=== PATIENT | male | born 1930 | race Caucasian/White ===

== ENCOUNTER 2021-09-04 09:33 | Emergency (ER) | payer MEDICARE, OTHER ==
[2021-09-04 10:56] LABS: LACTIC ACID 0.8 mmol/L (0.4-1.9)
[2021-09-04 11:08] LABS: BASOPHIL 0.6 % (0-2); EOSINOPHIL 1.1 % (0-7); HCT 40.4 % (42.0-52.0); HGB 13.3 g/dl (13.2-18.0); LYMPHOCYTE 48.9 % (15-48); MCH 31.3 pg (25.0-31.0); MCHC 32.9 g/dL (32.0-36.0); MCV 95.1 fL (78.0-100.0); MONOCYTE 5.1 % (0-12); MPV 9.5 fL (6.0-9.5); NEUTROPHIL 43.8 % (41-80); NRBC 0; PLT 302 K/uL (150-400); RBC 4.25 M/uL (4.70-6.00); RDW 13.4 % (11.5-14.0)
[2021-09-04 11:10] LABS: WBC 27.7 K/uL (4.0-10.5)
[2021-09-04 11:27] LABS: ALBUMIN 2.7 g/dL (3.4-5.0); BILIRUBIN - TOTAL 0.5 mg/dL (0.2-1.0); POTASSIUM 4.1 mmol/L (3.5-5.1); TOTAL PROTEIN 7.7 g/dL (6.4-8.2)
[2021-09-04 11:43] LABS: INR 1.23 (0.9-1.2); PROTHROMBIN TIME 15.1 SECONDS (11.9-13.9); PTT 32.9 SECONDS (24.9-34.6)
== END 2021-09-04 14:10 | disposition home or self-care (01) ==
LOC: FER 09:33
PROVIDERS: Emergency Medicine
DX: S22.078A Other fracture of T9-T10 vertebra, initial encounter for closed fracture (principal); S22.088A Other fracture of T11-T12 vertebra, initial encounter for closed fracture; C95.90 Leukemia, unspecified not having achieved remission; Z20.822 Contact with and (suspected) exposure to COVID-19; W19.XXXA Unspecified fall, initial encounter
CPT/HCPCS: 36415; 71045; 72128; 72131; 80053; 83605; 84145; 84484; 85025; 85610; 85730; 93005; U0002